=== PATIENT | male | born 1980 | race Two or more races ===

== ENCOUNTER 2025-06-04 08:57 | Emergency (ER) | payer SELFPAY ==
--- NOTE | 2025-06-04 09:00 | EKG_ITS ---
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
[2025-06-04 09:19] VITALS: BP 149/107; PULSE 75; RESP 16; TEMP 36.9; O2SAT 99; BMI 28.8
--- NOTE | 2025-06-04 09:35 | XR_ITS ---
Examination: CT brain head without contrast. 2-D sagittal coronal reconstructions Date and time of exam: June 04, 2025, 10:30 a.m., comparison May 01, 2023 INDICATIONS: Onset dizziness beginning 3 days ago CTDI: vol (mGy): 53.5 DLP: (mGycm): 1129 Technique: Multiple CT axial sections of the brain have been obtained, 5 mm slice thickness. Contrast has not been administered. 2-D sagittal, coronal reconstructions have been obtained Low dose protocols were performed. One or more of the following dose reduction techniques were used; automated exposure control, adjustment of the mA and/or KV according to patient size, use of iterative reconstruction technique. Findings: No significant ventricular enlargement. Intra-axial or extra-axial hemorrhage density is not seen. No mass effect or midline shift Basal cisterns are not remarkable. Fourth ventricle is midline. Cranial vault intact. Impression: Negative for acute hemorrhage, mass effect or midline shift Advise clinical correlation and follow-up accordingly
[2025-06-04 09:52] LABS: Basophils # (Auto) 0.0 Thou/mm3 (0.0-0.2); Basophils % (Auto) 1 % (0-2.5); Eosinophils # (Auto) 0.1 Thou/mm3 (0.0-0.5); Eosinophils % (Auto) 2 % (0-10); Hematocrit 39.9 % (41.0-53.0); Hemoglobin 13.8 g/dL (13.5-16.0); Immature Granulocytes Auto 0.02 Thou/mm3 (0.00-0.00); Lymphocytes # (Auto) 2.2 Thou/mm3 (1.0-4.8); Lymphocytes % (Auto) 29 % (10-50); Mean Corpuscular HGB Conc 34.6 g/dl (31.0-37.0); Mean Corpuscular Hemoglobin 29.6 pg (25.0-35.0); Mean Corpuscular Volume 86 fL (80-100); Monocytes # (Auto) 0.4 Thou/mm3 (0.0-0.8); Monocytes % (Auto) 5 % (0-12); Neutrophils # (Auto) 4.8 Thou/mm3 (1.8-7.7); Neutrophils % (Auto) 64 % (37-80); Nucleated Red Blood Cell # 0.00 Thou/mm3 (0.00-0.00); Nucleated Red Blood Cell % 0 /100 WBC (0); Platelet Count 264 Thou/mm3 (140-440); RDW Standard Deviation 37.3 fL (35.1-43.9); Red Blood Count 4.66 Miln/mm3 (4.50-5.90); White Blood Count 7.5 Thou/mm3 (3.8-10.6)
[2025-06-04 10:17] LABS: Alanine Aminotransferase 14 U/L (10-49); Albumin, Serum 5.0 gm/dL (3.5-5.0); Albumin/Globulin Ratio 1.8 (1.2-2.2); Alkaline Phosphatase 89 U/L (46-116); Anion Gap 9 (7-16); Aspartate Amino Transferase 16 U/L (0-34); BUN/Creatinine Ratio 14 Ratio (12-20); Bilirubin,Total 0.5 mg/dL (0.3-1.2); Blood Urea Nitrogen 14 mg/dL (9-23); Calcium 9.7 mg/dL (8.3-10.6); Calcium (Corrected) 9.7 mg/dL (8.5-10.1); Carbon Dioxide 26.6 mMol/L (20.0-31.0); Chloride 102 mMol/L (98-107); Creatinine (Component) 1.0 mg/dL (0.6-1.3); Estimated Creatinine Clearance 103.7 mL/min (>60); Globulin 2.8 gm/dL (2.3-3.5); Glucose 96 mg/dL (74-106); Osmolality,Calculated 276 (275-295); Potassium 4.0 mMol/L (3.4-5.1); Sodium 138 mMol/L (136-145); Total Protein 7.8 gm/dL (5.7-8.2); Troponin I < 0.002 ng/mL (0.0-0.045); eGFR > 60 See Note
[2025-06-04 10:35] LABS: B-Type Natriuretic Peptide < 20 pg/mL (0-100)
[2025-06-04] MEDS: MECLIZINE HCL 25 MG TABLET 50 MG PO (10:57)
[2025-06-04 11:35] LABS: Collection Type, Urine Voided; Squamous Epithelial Cell,Urine 0 /hpf (0-5)
[2025-06-04 11:53] LABS: Bilirubin,Urine Negative (Negative); Blood,Urine Negative (Negative); Clarity,Urine Clear (Clear/Hazy); Color,Urine Lt-Yellow (Lt Yel-Yel); Culture Indicated,Urine Not Indicated; Glucose, Urine Negative (Negative); Ketones,Urine Negative (Negative); Leukocyte Esterase,Urine Negative (Negative); Nitrite,Urine Negative (Negative); PH,Urine 7.0 (5.0-7.0); Protein,Urine Negative (Neg - Trace); RBC,Urine 3 /hpf (0-3); Specific Gravity,Urine 1.025 (1.001-1.035); Urobilinogen,Urine Negative mg/dL (0.0-1.0); WBC,Urine 2 /hpf (0-5)
[2025-06-04 11:58] LABS: Sperm,Urine Present
--- NOTE | 2025-06-04 12:16 | PD.EDDIZZY ---
ED Dizzyness RME/HPI General Chief Complaint: Dizziness Stated Complaint: Dizziness X 3 days Time Seen by Provider: 06/04/25 09:22 Arrival date/time: 06/04/25 08:57 This is a 45-year-old male that comes into the emergency room with complaints of dizziness for the past 3 days. Patient denies chest pain shortness of breath. Patient also states that he recently had an ear infection to the right ear and he had some drops but it got better. Patient denies any upper respiratory symptoms. Patient also states that sometimes when he ejaculates there is blood in his semen. Patient states it does not happen all the time but sometimes there is a little bit of blood. Patient denies any penis, scrotal, testicular pain. Patient denies any urinary frequency urgency dysuria. Patient does not suspect he is an STD. Patient does not report any new sexual partners. Patient denies any back pain. Related Data Home Medications ?Medication ?Instructions ?Recorded ?Confirmed losartan 100 mg tablet 100 mg PO DAILY 05/18/23 05/18/23 Previous Rx's ?Medication ?Instructions ?Recorded meclizine 50 mg tablet 50 mg PO BID PRN dizziness #14 06/04/25 tabs Allergies Allergy/AdvReac Type Severity Reaction Status Date / Time No Known Allergies Allergy Verified 06/04/25 08:59 Review of Systems Review of Systems Systems Reviewed: All systems reviewed, normal except as documented Past Medical History Past Medical History CARDIAC: Positive Hypertension; Negative Congestive Heart Failure RESPIRATORY: Negative Chronic Obstructive Pulmonary Disease (COPD) GENITOURINARY: Negative Renal Disease ENDOCRINE: Negative Diabetes Mellitus Type 1 or Diabetes Mellitus Type 2 Social History SMOKING STATUS: Never smoker ED Exam Narrative Physical exam: VITAL SIGNS: Reviewed. GENERAL APPEARANCE: Alert and interactive, follows commands, no acute distress, HEAD AND FACE: Non-traumatic. ENT: PERRL, conjuctiva pink and clear, eyelid no trauma, Mucous membrane moist. NECK: Supple, nontender, no nuchal rigidity. CHEST: No tenderness, no crepitus, no paradoxical movement, no retractions. LUNGS: Clear, well ventilated, symmetric, no rales, no wheezing, no rhonchi, no stridor, good breath sounds bilaterally. HEART: Regular rate, regular rhythm, no murmur, no gallops. ABDOMEN: Soft, nondistended, no guarding, nontender, no rebound, no masses NEUROLOGICAL: Gross motor function intact sensory function intact, Appropriate for age. MUSCULOSKELETAL: low back nontender, full range of motion. EXTREMITIES: No redness no swelling no skin breakdown on bilateral foot and leg. Distal neurovascular status intact bilateral foot SKIN: Color pink, dry Course Quality Measures none Orders Category Date Time Status EKG (ED ONLY) *Do not use* NOW Care 06/04/25 09:[address] head/brain wo con Stat Exams 06/04/25 09:35 Completed EKG (ED Only) Stat Exams 06/04/25 09:00 Draft BNP [B-Type Natriuretic Peptide] Stat Lab 06/04/25 09:48 Completed CBC Stat Lab 06/04/25 09:48 Completed Comprehensive Metabolic Panel Stat Lab 06/04/25 09:48 Completed Troponin I Stat Lab 06/04/25 09:48 Completed Urinalysis, C/S if Indicated Stat Lab 06/04/25 11:25 Completed Meclizine HCl [Antivert] Med 06/04/25 09:35 Discontinued 50 mg PO X1 ONE Vital Signs Vital signs: Vital Signs Temperature 98.5 F 06/04/25 09:19 Pulse Rate 75 06/04/25 09:19 Respiratory Rate 16 06/04/25 09:19 Blood Pressure 149/107 H 06/04/25 09:19 Pulse Oximetry (%) 99 06/04/25 09:19 Oxygen Delivery Method Room Air 06/04/25 09:19 PROCEDURES: EKG Interpretation #1: Date of EK06/04/25 Time of EK:21 Rate: 84 Interpretation: Interpreted by me (Sinus rhythm borderline left axis deviation, patient does have some Q waves in old lead I aVL) EKG Impression: No ectopy, Normal QRS and Normal intervals Dizziness MDM Narrative MDM Narrative:: ct of head: Findings: No significant ventricular enlargement. Intra-axial or extra-axial hemorrhage density is not seen. No mass effect or midline shift Basal cisterns are not remarkable. Fourth ventricle is midline. Cranial vault intact. Impression: Negative for acute hemorrhage, mass effect or midline shift Advise clinical correlation and follow-up accordingly Labs reviewed. CBC unremarkable BMP unremarkable LFTs unremarkable troponin less than 0.002 BN P shows less than 20 urinalysis does not show any blood any leukocyte esterase white blood cells. Spoke to patient at length. Patient will need to follow-up with his primary doctor in 1 to 2 days. I did send a culture for his urine and also GC chlamydia swab of his urine as well. Patient will need to follow-up with primary provider for this problem. Patient states that dizziness does not happen all the time and mostly when he moves his head fast [id number] or rapid changes in position. Patient does not have any nystagmus on assessment. Patient was given meclizine for dizziness. Patient fell asleep. And was brought back to her room and states he feels better and just tired. I had patient ambulate patient had no issues ambulating in the hallway. Patient has a steady gait. Patient has no focal deficits denies any double vision loss of vision blurry vision, headache.. Patient denies chest pain shortness of breath. Patient told to monitor blood pressure at home. I explained to patient and he will need to follow-up with his primary doctor about his blood pressure. come to the emergency room if symptoms change or worsen. Patient data External records reviewed:: [facility] previous records Clinical information provided by:: patient Social determinants that could affect healthcare access:: none Patient has the following chronic illnesses:: none How is presenting disease/condition affected by chronic disease/condition?: no chronic disease Evaluation data The following diagnostics were reviewed and interpreted by me:: lab results, radiology exam(s) and EKG tracing(s) Lab and/or radiology exams considered but not ordered:: none Interpretation Summary: see note Medications / Prescriptions Medications or Prescriptions considered but not ordered:: none Medication administrations:: Medication Administration History Discontinued Medications Meclizine HCl (Meclizine Hcl 25 Mg Tablet) 50 mg PO X1 ONE Stop: 06/04/25 09:36 Last Admin: 06/04/25 10:57 Dose: 50 mg Documented By: LF see [facility] Consultations Consultation(s) initiated? (list below): No Diagnosis Most likely diagnosis given after review of the tests above:: dizziness Admission Indicated Admission indicated?: not indicated Admission Request Was there a request for admission?: No Disposition Plan Disposition Plan: Discharge Discharge Attestation Discharge Attestation: The patient and all family members were given an opportunity to ask questions and understood the discharge instructions. Discharge instructions specifically effects, indications for sooner follow up or return to the emergency department, and the expected course of current diagnosis. Patient condition: Stable Discharge Plan Plan Patient Disposition: HOME (Self Care) Patient condition on transfer: Stable Prescriptions/Referrals Prescriptions/Med Rec: New meclizine 50 mg tablet 50 mg PO BID PRN (Reason: dizziness ) Qty: 14 0RF No Action losartan 100 mg tablet 100 mg PO DAILY Patient Comments: TAKE 1 TABLET BY MOUTH EVERY DAY Referrals: Dontrell Terrazas MD [Primary Care Provider, Family Practice] - In 1 week Problem List Clinical Impression: Dizziness Patient/Caregiver Discharge Instructions Discharge Activity: activity as tolerated Education Materials: Vertigo Medicine Tx Additional Instructions: Follow up with primary provider in 1-2 days. Come back to ED if symptoms change or worsen Print Language: Ukrainian Stand Alone Forms: Audra Award Info., Patient Portal Info Letter PA/[employer] Supervising Physician PA/[employer] Supervising Physician: prema
== END 2025-06-04 14:07 | disposition home or self-care (01) ==
PROVIDERS: Nurse Practitioner Family; Emergency Provider Emergency Medicine; PCP Family Medicine
DX: R42 Dizziness and giddiness (principal)
CPT/HCPCS: 36415; 70450; 80053; 81001; 83880; 84484; 85025; 87086; 87491; 87591; 87661; 93005; 99283; A9270